=== PATIENT | male | born 1990 | race Caucasian/White ===

== ENCOUNTER 2024-02-20 11:44 | Emergency (ER) | payer SELFPAY ==
--- NOTE | 2024-02-20 11:58 | ED ---
General Adult HPI - General Chief complaint: Fall Stated complaint: Fall/Rib Pain Time Seen by Provider: 02/20/24 11:54 Source: patient, RN notes reviewed Mode of arrival: ambulatory Limitations: no limitations - History of Present Illness Initial comments: This is a 33-year-old male who presents to the emergency department for pain over the right rib cage. States that 2 weeks ago he fell and injured his right rib cage on a trailer. Pain seemed to improve and he was not evaluated at that time. Today when doing yard work he strained himself and developed pain over the right rib cage again. - Related Data Previous Rx's Medication Instructions Recorded Ibuprofen [Motrin] 800 mg PO Q8H PRN #30 tab 02/20/24 Lidocaine 5% Patch [Lidoderm 5% 1 patch TOPICAL DAILY PRN #30 patch 02/20/24 Patch] methocarbamoL [Robaxin-750] 1,500 mg PO TID PRN #30 tab 02/20/24 Allergies Allergy/AdvReac Type Severity Reaction Status Date / Time No Known Allergies Allergy Verified 02/20/24 12:01 Review of Systems ROS Statement: Those systems with pertinent positive or pertinent negative responses have been documented in the HPI. ROS Other: All systems not noted in ROS Statement are negative. Past Medical History Past Medical History: No Reported History History of Any Multi-Drug Resistant Organisms: None Reported Past Surgical History: Hernia Repair Past Psychological History: No Psychological Hx Reported Smoking Status: Current every day smoker Past Alcohol Use History: None Reported Past Drug Use History: IV Drug Use General Exam Limitations: no limitations General appearance: alert, in no apparent distress Head exam: Present: atraumatic, normocephalic, normal inspection Respiratory exam: Present: normal lung sounds bilaterally, chest wall tenderness (Right rib cage). Absent: respiratory distress, wheezes, rales, rhonchi, stridor Cardiovascular Exam: Present: regular rate, normal rhythm, normal heart sounds. Absent: systolic murmur, diastolic murmur, rubs, gallop, clicks Neurological exam: Present: alert, oriented X3, CN II-XII intact Psychiatric exam: Present: normal affect, normal mood Skin exam: Present: warm, dry, intact, normal color. Absent: rash Course Vital Signs 02/20/24 11:51 Temperature 98.1 F Pulse Rate 51 L Respiratory 16 Rate Blood Pressure 135/67 O2 Sat by Pulse 98 Oximetry Medical Decision Making - Medical Decision Making This is a 33 year old male who presents to the emergency department for pain over the right rib cage. Was pt. sent in by a medical professional or institution? @ -No Did you speak to anyone other than the patient for history? @ -No Did you review nursing and triage notes? @ -Yes, and I agree, it is accurate with regards to the patient's symptoms. Were old charts reviewed? @ -No Differential Diagnosis? @ -Differential Rib Pain: Fracture, contusion, pneumothorax, this is not meant to be an all-inclusive list. EKG interpreted by me (3pts min.)? @ -Not obtained X-rays interpreted by me (1pt min.)? @ -Chest x-ray obtained, my interpretation identifies no localized consolidations or infiltrates. CT interpreted by me (1pt min.)? @ -Not obtained U/S interpreted by me (1pt. min.)? @ -Not obtained What testing was considered but not performed? (CT, X-rays, U/S, labs)? Why? @ -None What meds were considered but not given? Why? @ -None Did you discuss the management of the patient with other professionals? @ -No Did you reconcile home meds? @ -No Was smoking cessation discussed for >3mins.? @ -No Was critical care preformed (if so, how long)? @ -No Were there social determinants of health that impacted care today? How? (Homelessness, low income, unemployed, alcoholism, drug addiction, transpor tation, low edu. Level, literacy, decrease access to med. care, [facility], rehab)? @ -No Was there de-escalation of care discussed even if they declined? (Discuss DNR or withdrawal of care, Hospice)? @ -No What co-morbidities impacted this encounter? (DM, HTN, Smoking, COPD, CAD, Cancer, CVA, Hep., AIDS, mental health diagnosis, sleep apnea, morbid obesity)? @ -None Was patient admitted / discharged? @ -Discharged. X-ray of the right rib cage and chest obtained demonstrating a hairline lucency through the posterior lateral right eighth rib suggestive of potential nondisplaced fracture. Patient was evaluated and managed in the emergency department. He did not want to wait for pain medication or treatment otherwise in the emergency department and requested prescriptions just be sent to his pharmacy. Prescription for ibuprofen, Robaxin, and lidocaine patches provided with dosing instructions reviewed. He is instructed to take several deep breaths an hour despite the pain to reduce the risk of developing a secondary pneumonia. Undiagnosed new problem with uncertain prognosis? @ -None Drug Therapy requiring intensive monitoring for toxicity (Heparin, Nitro, Insulin, Cardizem)? @ -None Were any procedures done? @ -None Diagnosis/symptom? @ -Rib fracture Acute, or Chronic, or Acute on Chronic? @ -Acute Uncomplicated (without systemic symptoms) or Complicated (systemic symptoms)? @ -Uncomplicated Side effects of treatment? @ -None Exacerbation, Progression, or Severe Exacerbation] @ -Not applicable Poses a threat to life or bodily function? @ -No Return precautions reviewed in depth, the patient is instructed to return to the emergency department with any new, worsening, or concerning symptoms. Patient verbalized understanding. This case was discussed in detail with the attending ED physician, Dr. Gray. Presentation, findings, and treatment plan discussed in detail as well. - Radiology Data Radiology results: report reviewed, image reviewed Disposition Clinical Impression: Right rib fracture Disposition: HOME SELF-CARE Instructions (If sedation given, give patient instructions): Rib Fracture (ED) Additional Instructions: Return to the emergency department with any new, worsening, or concerning symptoms. Alternate with ibuprofen and Tylenol as needed for pain relief. Take the Robaxin as 1 to 2 tablets up to 3-4 times daily and be aware that this may make you drowsy. You can also apply the lidocaine patches daily. Make sure you take several deep breaths an hour despite the pain to reduce the risk of developing a secondary pneumonia. Follow up with your primary care provider in 1-2 days. Prescriptions: Lidocaine 5% Patch [Lidoderm 5% Patch] 1 patch TOPICAL DAILY PRN #30 patch PRN Reason: Pain Ibuprofen [Motrin] 800 mg PO Q8H PRN #30 tab PRN Reason: Pain methocarbamoL [Robaxin-750] 1,500 mg PO TID PRN #30 tab PRN Reason: Pain Is patient prescribed a controlled substance at d/c from ED?: No Referrals: None,Stated [Primary Care Provider] - 1-2 days
[2024-02-20 12:01] VITALS: BP 135/67; PULSE 51; RESP 16; TEMP 98.1
--- NOTE | 2024-02-20 13:09 | XR ---
EXAMINATION TYPE: XR ribs RT w pa chest xray DATE OF EXAM: 02/20/2024 COMPARISON: NONE TECHNIQUE: PA view of the chest and 4 views of the right ribs submitted. HISTORY: Pain FINDINGS: The lungs are clear and there is no pneumothorax, pleural effusion, or focal pneumonia. Heart size normal and no overt failure. Hairline lucency through the posterior lateral right eighth rib correlat e with point tenderness for nondisplaced fracture. IMPRESSION: 1. Correlate with point tenderness for hairline nondisplaced fracture posterior lateral right eighth rib.
== END 2024-02-20 13:31 | disposition home or self-care (01) ==
LOC: EC 11:44
DX: S22.31XA Fracture of one rib, right side, initial encounter for closed fracture (principal); F17.200 Nicotine dependence, unspecified, uncomplicated; W19.XXXA Unspecified fall, initial encounter; Y93.H2 Activity, gardening and landscaping
CPT/HCPCS: 99283

== ENCOUNTER 2024-03-01 17:38 | Emergency (ER) | payer SELFPAY ==
[2024-03-01 17:53] VITALS: TEMP 98.5
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
[2024-03-01] MEDS: LIDOCAINE 1% INJ 10MG/ML (20 ML MDV) SQ ONE (18:58)
[2024-03-01 20:11] VITALS: BP 126/82; PULSE 80; RESP 20
== END 2024-03-01 20:11 | disposition home or self-care (01) ==
LOC: EC 17:38
DX: S61.221A Laceration with foreign body of left index finger without damage to nail, initial encounter (principal); S61.422A Laceration with foreign body of left hand, initial encounter; S11.91XA Laceration without foreign body of unspecified part of neck, initial encounter; S01.112A Laceration without foreign body of left eyelid and periocular area, initial encounter; F17.200 Nicotine dependence, unspecified, uncomplicated; Y00.XXXA Assault by blunt object, initial encounter
CPT/HCPCS: 12011; 12001; 10120; 99283; J2001

== ENCOUNTER 2024-06-28 10:39 | Emergency (ER) | payer SELFPAY ==
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
[2024-06-28] MEDS: ACETAMINOPHEN TAB 500 MG TAB PO STA (11:17)
[2024-06-28] MEDS: DIPH,PERTUS(ACELL)TETVAC-LF 0.5 ML VIAL IM ONE (11:19)
--- NOTE | 2024-06-28 12:19 | CT ---
EXAMINATION TYPE: CT brain cspine wo con, CT facial bones wo con CT DLP: 1222.7 mGycm, Automated exposure control for dose reduction was used. DATE OF EXAM: 06/28/2024 12:01 PM COMPARISON: None. CLINICAL INDICATION:Male, 33 years old with history of fall, poss LOC, pain; Fall, pain TECHNIQUE: Brain: Multiple axial CT images of the brain were obtained without IV contrast. Cspine: Axial CT images from the skull base to the inferior aspect of T2 we obtained without intraven ous contrast. Coronal and sagittal reformatted images were also reviewed. Facial bones; axial CT images of the facial bones were obtained without contrast and soft tissue and bone windows. Coronal and sagittal reformatted images were also reviewed. FINDINGS: Brain: Extra-axial spaces: No abnormal extra-axial fluid collections. Ventricular system: Within normal limits Cerebral parenchyma: No acute intraparenchymal hemorrhage or mass effect. The marie-white junction is well differentiated. Cerebellum: Unremarkable. Mass effect: No evidence of midline shift. Intracranial vasculature: unremarkable Soft tissues: Normal. Calvarium: No depressed skull fracture. Visualized orbits: Orbital contents are intact. Cervical spine: Fracture: None. Osseous structures: Unremarkable Vertebral alignment: Within normal limits. Spinal canal/Neural Foramina: No evidence of significant spinal canal narrowing. No evidence for sign ificant neural foraminal stenosis. Neck soft tissues: Prevertebral soft tissues are within normal limits. Other: The airway is patent. The lung apices are clear. Facial Bones: Acute nondisplaced fracture of the right zygomatic arch with additional nondisplaced fracture through the anterior and superior right maxillary chang. Mildly displaced right maxillary wall posterior fra cture with approximately 2 mm of displacement. Air-fluid level within the right maxillary sinus. Acut e bilateral nasal bone fracture with depression. No septal deviation the right with suggestive nondis placed fracture. Opacification within the nasal airway. Bilateral frontal sphenoid and left maxillary sinuses are clear. The mastoid air cells are clear. Right temporal and periorbital soft tissue swell ing. Focus of gas identified within the right temporal soft tissues. The orbital contents are unremar kable. The temporal-mandibular joints appear symmetric. IMPRESSION: 1. No acute intracranial process. 2. No evidence of cervical spine fracture. 3. Multiple acute right facial bone fractures including the zygomatic arch, anterior, superior and p osterior right maxillary sinus chang. Blood products layering within the right maxillary sinus. The g lobes appear intact. Additional bilateral nasal bone fractures. Rightward nasal septal deviation with suspected nondisplaced fracture. [facility], , 06/28/2024 12:16 PM
[2024-06-28 12:39] VITALS: RESP 18; TEMP 98.1
--- NOTE | 2024-06-28 13:10 | XR ---
EXAMINATION TYPE: XR ribs RT w pa chest xray DATE OF EXAM: 06/28/2024 1:00 PM INDICATION: Patient age:Male; 33 years old; Reason for study: fall, pain; PH[facility]. COMPARISON: 02/20/2024 TECHNIQUE: Frontal and oblique views of the right ribs. Additional PA chest radiograph. FINDINGS: Healing right lateral seventh rib fracture with callus formation. Overall, the lungs are cl ear. The cardiac silhouette is normal in size. The remaining osseous structures are intact. IMPRESSION: Healing subacute to more remote right lateral seventh rib fracture with callus summation. No acute fr acture. [facility], , 06/28/2024 1:07 PM
[2024-06-28] MEDS: IBUPROFEN 800 MG TAB PO STA (13:59)
[2024-06-28 14:54] VITALS: BP 144/78; PULSE 74
== END 2024-06-28 14:53 | disposition home or self-care (01) ==
LOC: EC 10:39
CPT/HCPCS: 70450; 70486; 72125